=== PATIENT | female | born 1960 | race Caucasian/White ===

== ENCOUNTER → 2018-05-23 | Outpatient (CLI) | payer SELFPAY ==
[~2018-05-23] MED LIST: CHOL10005 PO
--- NOTE | 2018-05-23 20:55 | RADIOLOGY IMAGING REPORT ---
FACILITY: [facility] PATIENT NAME: Kelsey Valdez : 1960 MR: [id number] V: [id number] EXAM DATE: ORDERING PHYSICIAN: JAVY REILLY TECHNOLOGIST: Location: [facility] Patient: Kelsey Valdez : 1960 Visit/Account:[id number] Date of Sevice: 05/23/2018 Venous Doppler ultrasound left lower extremity Indication: Left leg pain and swelling.. Comparison: None Available Findings: Duplex Doppler and color flow imaging was performed. The common femoral, femoral, and popl iteal veins are all patent and compressible with normal Doppler wave forms. There are normal respons es to augmentation. The posterior tibial and peroneal veins are patent in the calf. The proximal greater saphenous vein is also normal. Subcutaneous tissues are unremarkable. IMPRESSION: 1. No evidence of deep venous thrombosis of the left lower extremity. Report Dictated By: Viktor Vega at 05/23/2018 8:50 PM Report E-Signed By: Viktor Vega at 05/23/2018 8:51 PM WSN:[id number]
== END ==
LOC: US 19:54
PROVIDERS: ATTEND Nurse Practitioner Family
DX: M79.662 Pain in left lower leg (principal)

== ENCOUNTER → 2018-09-10 | Outpatient (CLI) | payer SELFPAY ==
--- NOTE | 2018-09-12 09:30 | RADIOLOGY IMAGING REPORT ---
FACILITY: [facility] [place] PATIENT NAME: EVERARDO PUGH : [id number] MR: [id number] V: [id number] EXAM DATE: ORDERING PHYSICIAN: ANTOINE MORENO TECHNOLOGIST: Delaney Pace PROCEDURE:BILATERAL DIAGNOSTIC DIGITAL MAMMOGRAM WITH CAD ASSISTED INTERPRETATION & 3D TOMOSYNTHESIS REASON FOR STUDY: Palpable lump 6 o'clock position Right breast FAMILY HISTORY OF BREAST CANCER: Maternal Grandmother BREAST PROCEDURES/TREATMENTS: None COMPARISON STUDIES: Left mammogram 12/14/15, Left mammogram 04/21/15, Bilateral mammogram 02/09/15 MAMMOGRAM VIEWS OBTAINED: Bilateral 2D & 3D full field CC & MLO projections & 2D spot magnification view in the Left CC & MLO projections & 2D & 3D spot compression in the Right CC projection. BREAST DENSITY: The breasts are heterogeneously dense which can obscure small masses. MAMMOGRAM FINDINGS: In the upper medial portion of the Left breast junction of the middle & anterior depths there is a small cluster of round calcifications not definitively seen on the prior study. Stereotactic biopsy is recommended for further evaluation. In the upper outer quadrant of the Right breast in the anterior depth there is a well circumscribed ovoid high density lesion. Right breast Ultrasound was performed for further evaluation. ULTRASOUND RIGHT BREAST AREA SCANNED: The 9-12 o'clock position of the Right breast. INDICATION: Further evaluation COMPARISION: Today's mammogram ULTRASOUND FINDINGS: In the 10 o'clock position of the Right breast 1cm from the nipple there is an ovoid circumscribed anechoic mass measuring 1.5cm in diameter with acoustic enhancement. This is consistent with a cyst & may account for patient's palpable findings. In the 11 o'clock position of the Right breast 6cm from the nipple there is a small cluster of cysts the largest measuring 8mm. DIAGNOSTIC CATEGORY 4--SUSPICIOUS FOR MALIGNANCY. RECOMMENDATIONS: STEREOTACTIC BREAST BIOPSY: LEFT BREAST. IMPRESSION: BIRADS 4: Suspicious for malignancy. Stereotactic biopsy of the small grouping of calcifications in the medial upper portion of the Left breast recommended for further evaluation. There is a well circumscribed mass in the upper outer quadrant of the Right breast shown to represent a simple cyst. This may account for patient's palpable findings in the Right breast. Clinical follow up suggested. Dictated by: Martha River M.D. on 09/10/2018 at 17:24 Transcribed by: NAINA on 09/12/2018 at 9:16 Approved by: Martha River M.D. on 09/12/2018 at 9:26 [facility]
--- NOTE | 2018-09-12 09:30 | RADIOLOGY IMAGING REPORT ---
FACILITY: [facility] - [place] PATIENT NAME: EVERARDO PUGH : [id number] MR: [id number] V: [id number] EXAM DATE: ORDERING PHYSICIAN: ANTOINE MORENO TECHNOLOGIST: Fredi Mart RDMS, RDCS PROCEDURE:BILATERAL DIAGNOSTIC DIGITAL MAMMOGRAM WITH CAD ASSISTED INTERPRETATION & 3D TOMOSYNTHESIS REASON FOR STUDY: Palpable lump 6 o'clock position Right breast FAMILY HISTORY OF BREAST CANCER: Maternal Grandmother BREAST PROCEDURES/TREATMENTS: None COMPARISON STUDIES: Left mammogram 12/14/15, Left mammogram 04/21/15, Bilateral mammogram 02/09/15 MAMMOGRAM VIEWS OBTAINED: Bilateral 2D & 3D full field CC & MLO projections & 2D spot magnification view in the Left CC & MLO projections & 2D & 3D spot compression in the Right CC projection. BREAST DENSITY: The breasts are heterogeneously dense which can obscure small masses. MAMMOGRAM FINDINGS: In the upper medial portion of the Left breast junction of the middle & anterior depths there is a small cluster of round calcifications not definitively seen on the prior study. Stereotactic biopsy is recommended for further evaluation. In the upper outer quadrant of the Right breast in the anterior depth there is a well circumscribed ovoid high density lesion. Right breast Ultrasound was performed for further evaluation. ULTRASOUND RIGHT BREAST AREA SCANNED: The 9-12 o'clock position of the Right breast. INDICATION: Further evaluation COMPARISION: Today's mammogram ULTRASOUND FINDINGS: In the 10 o'clock position of the Right breast 1cm from the nipple there is an ovoid circumscribed anechoic mass measuring 1.5cm in diameter with acoustic enhancement. This is consistent with a cyst & may account for patient's palpable findings. In the 11 o'clock position of the Right breast 6cm from the nipple there is a small cluster of cysts the largest measuring 8mm. DIAGNOSTIC CATEGORY 4--SUSPICIOUS FOR MALIGNANCY. RECOMMENDATIONS: STEREOTACTIC BREAST BIOPSY: LEFT BREAST. IMPRESSION: BIRADS 4: Suspicious for malignancy. Stereotactic biopsy of the small grouping of calcifications in the medial upper portion of the Left breast recommended for further evaluation. There is a well circumscribed mass in the upper outer quadrant of the Right breast shown to represent a simple cyst. This may account for patient's palpable findings in the Right breast. Clinical follow up suggested. Dictated by: Martha River M.D. on 09/10/2018 at 17:24 Approved by: Martha River M.D. on 09/12/2018 at 9:26 [facility]
== END ==
LOC: MAMO 01:30
PROVIDERS: ATTEND Physician Assistant
DX: N63.41 Unspecified lump in right breast, subareolar (principal); Z80.3 Family history of malignant neoplasm of breast
CPT/HCPCS: 77062; 77066